=== PATIENT | male | born 1960 | race American Indian/Alaskan Native ===

== ENCOUNTER 2018-08-26 05:40 | Observation (INO) | payer MEDICAID ==
[2018-08-26] MEDS ORDERED: methylPREDNISolone Sodium Succinate 125 MG/2 ML SDV IVPUSH ONE (05:46)
[2018-08-26] MEDS ORDERED: Albuterol/Ipratropium 3.0-0.5 MG/3 ML Neb Soln NEB ONE (05:46)
[2018-08-26] MEDS ORDERED: Albuterol 0.083% 2.5 MG/3 ML Neb Soln NEB ONE (05:59)
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
[2018-08-26 06:29] LABS: ANION GAP 14.9; CHLORIDE,CL 98 mmol/L (101-111); SODIUM,NA 135 mmol/L (135-145)
[2018-08-26 06:41] LABS: BASE EXCESS ARTERIAL 0 mmol/L ((-2)-(+3)); O2 DELIVERY DEVICE ROOM AIR; O2 SATURATION ARTERIAL 95 % (95-100); PCO2 ARTERIAL 38 mmHg (35-45); PO2 ARTERIAL 71 mmHg (70-100)
[2018-08-26 06:43] LABS: ALLEN TEST PERFORMED
[2018-08-26] MEDS ORDERED: Aluminum Hydroxide/Magnesium Hydroxide/Simethicone Susp 30 ML Cup PO PRN (09:03)
[2018-08-26] MEDS ORDERED: Magnesium Hydroxide 400 MG/5 ML Susp 30 ML Cup PO PRN (09:03)
[2018-08-26] MEDS ORDERED: Acetaminophen 325 MG Tab PO PRN (09:03)
[2018-08-26] MEDS ORDERED: Calcium Carbonate 500 MG Tab.Chew PO PRN (09:03)
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
[2018-08-26] MEDS: Heparin Sodium 5,000 Units/ML Vial SUBCUT SCH ×2 (10:44→21:11)
[2018-08-26] MEDS: Nicotine 14 MG/24 Hr Patch TRDERM SCH (10:45)
[2018-08-26] MEDS: Azithromycin 500 MG in Sodium Chloride 0.9% 250 ML IV SCH (10:45)
[2018-08-26] MEDS: Albuterol/Ipratropium 3.0-0.5 MG/3 ML Neb Soln NEB SCH ×4 (11:44→22:26)
[2018-08-26] MEDS: Sodium Chloride 0.9% 10 ML Syringe FLUSH PRN ×2 (11:49→14:20)
[2018-08-26] MEDS: methylPREDNISolone Sodium Succinate 40 MG/1 ML SDV IVPUSH SCH ×2 (14:19→21:10)
[2018-08-26] MEDS ORDERED: Check Patch TRDERM SCH (21:00)
[2018-08-26] MEDS ORDERED: Codeine/Promethazine 10-6.25 MG/5 ML Syrup 5 ML UD Cup PO PRN (21:42)
[2018-08-27] MEDS: Albuterol/Ipratropium 3.0-0.5 MG/3 ML Neb Soln NEB SCH ×3 (03:27→10:54)
[2018-08-27] MEDS: methylPREDNISolone Sodium Succinate 40 MG/1 ML SDV IVPUSH SCH (06:35)
[2018-08-27] MEDS: Nicotine 14 MG/24 Hr Patch TRDERM SCH (08:23)
[2018-08-27] MEDS: Heparin Sodium 5,000 Units/ML Vial SUBCUT SCH (08:23)
[2018-08-27] MEDS: Azithromycin 500 MG in Sodium Chloride 0.9% 250 ML IV SCH (09:02)
--- NOTE | 2018-08-27 10:07 | PCM.DCSUM1 ---
Discharge Summary - Hospital Course Free Text/Narrative:: Patient is 50 y/o M with no significant past medical history accept for active tobacco use. He preseneted to the ER with SOB and was found to have acute hypoxic respiratroy failure due to possible COPD exacerbation. He was managed with IV solumedrol, nebs and supplemental oxygen with improvement. He is being discharge home in a stable condition. Patient will need formal lung function test following discharge. Diagnosis: Stroke: No - Discharge Data Discharge Date: 08/27/18 Discharge Disposition: Home, Self-Care 01 Condition: Good - Discharge Diagnosis/Problem(s) (1) Acute respiratory failure with hypoxia SNOMED Code(s): 92192721, 091963209 ICD Code: J96.01 - ACUTE RESPIRATORY FAILURE WITH HYPOXIA Status: Acute Priority: Medium Current Visit: Yes (2) Tobacco abuse SNOMED Code(s): 852663441 ICD Code: Z72.0 - TOBACCO USE Status: Acute Current Visit: Yes - Patient Instructions Diet: Heart Healthy Diet Activity: As Tolerated Driving: May Drive Today Showering/Bathing: May Shower Notify Provider of: Fever, Increased Pain, Swelling and Redness, Nausea and/or Vomiting - Discharge Plan *PRESCRIPTION DRUG MONITORING PROGRAM REVIEWED*: Not Applicable *COPY OF PRESCRIPTION DRUG MONITORING REPORT IN PATIENT DULCE: Not Applicable Prescriptions/Med Rec: Albuterol [Proventil HFA] 2 puff INH Q4H PRN #1 inhaler PRN Reason: wheezing Azithromycin [Zithromax] 250 mg PO DAILY #4 tab predniSONE [Prednisone] 40 mg PO DAILY #10 tablet Home Medications: Home Meds Albuterol [Proventil HFA] 2 puff INH Q4H PRN #1 inhaler 08/27/18 [Rx] Azithromycin [Zithromax] 250 mg PO DAILY #4 tab 08/27/18 [Rx] predniSONE [Prednisone] 40 mg PO DAILY #10 tablet 08/27/18 [Rx] Forms: ED Department Discharge Referrals: PCP,None [Primary Care Provider] - - Discharge Summary/Plan Comment DC Time >30 min.: Yes - General Info Admission Dx/Problem (Free Text: Admission Diagnosis/Problem Admission Diagnosis/Problem COPD with acute lower respiratory infection Functional Status: Reports: Pain Controlled - Review of Systems General: Reports: No Symptoms HEENT: Reports: No Symptoms Pulmonary: Reports: No Symptoms Cardiovascular: Reports: No Symptoms Gastrointestinal: Reports: No Symptoms Genitourinary: Reports: No Symptoms Musculoskeletal: Reports: No Symptoms Skin: Reports: No Symptoms Neurological: Reports: No Symptoms Psychiatric: Reports: No Symptoms - Patient Data Vitals - Most Recent: Last Vital Signs Temp 98.8 F 08/27/18 04:00 Pulse 98 08/27/18 04:00 Resp 20 08/27/18 04:00 BP 126/68 08/27/18 04:00 Pulse Ox 94 L 08/27/18 04:00 Weight - Most Recent: 177 lb I&O - Last 24 hours: Intake & Output 08/26/18 08/27/18 08/27/18 22:59 06:59 14:59 Intake Total 500 800 Balance 500 800 MARY Results - Last 24 hrs: Microbiology 08/26/18 06:51 Gram Stain - Final Sputum - Expectorated Sputum Culture - Preliminary NORMAL RESPIRATORY ILENE 1 DAY 08/26/18 06:00 Aerobic Blood Culture - Preliminary Blood - Venous NO GROWTH AFTER 1 DAY Anaerobic Blood Culture - Preliminary NO GROWTH AFTER 1 DAY Med Orders - Current: Current Medications Acetaminophen (Tylenol) 650 mg PO Q4H PRN PRN Reason: Pain (mild 1-3 )/fever Al Hydroxide/Mg Hydroxide (Mag-Al Plus) 30 ml PO Q4H PRN PRN Reason: Dyspepsia Albuterol/Ipratropium (Duoneb 3.0-0.5 Mg/3 Ml) 3 ml NEB Q4HRRT [facility] Last Admin: 08/27/18 06:33 Dose: 3 ml Calcium Carbonate/Glycine (Tums) 500 mg PO Q4H PRN PRN Reason: Dyspepsia Heparin Sodium (Porcine) (Heparin Sodium) 5,000 units SUBCUT Q12H [facility] Last Admin: 08/27/18 08:23 Dose: Not Given Azithromycin 500 mg/ Sodium (Chloride) 250 mls @ 250 mls/hr IV Q24H [facility] Last Admin: 08/27/18 09:02 Dose: 250 mls/hr Magnesium Hydroxide (Milk Of Magnesia) 30 ml PO BID PRN PRN Reason: Constipation Methylprednisolone Sodium Succinate (Solu-Medrol) 40 mg IVPUSH Q8H [facility] Last Admin: 08/27/18 06:35 Dose: 40 mg Miscellaneous Information (Check Patch) 1 ea TRDERM BEDTIME [facility] Last Admin: 08/26/18 21:11 Dose: Not Given Nicotine (Habitrol) 14 mg TRDERM DAILY [facility] Last Admin: 08/27/18 08:23 Dose: Not Given Promethazine HCl/Codeine (Phenergan With Codeine) 5 ml PO Q6HR PRN PRN Reason: Cough Last Admin: 08/26/18 22:27 Dose: 5 ml Sodium Chloride (Saline Flush) 10 ml FLUSH ASDIRECTED PRN PRN Reason: Keep Vein Open Last Admin: 08/26/18 14:20 Dose: 10 ml Discontinued Medications Albuterol (Proventil Neb Soln) 2.5 mg NEB ONETIME ONE Stop: 08/26/18 06:00 Last Admin: 08/26/18 06:07 Dose: 2.5 mg Albuterol/Ipratropium (Duoneb 3.0-0.5 Mg/3 Ml) 3 ml NEB ONETIME ONE Stop: 08/26/18 05:47 Last Admin: 08/26/18 05:50 Dose: 3 ml Methylprednisolone Sodium Succinate (Solu-Medrol) 125 mg IVPUSH ONETIME ONE Stop: 08/26/18 05:47 Last Admin: 08/26/18 05:52 Dose: 125 mg - Exam General: Reports: Alert, Oriented HEENT: Reports: Pupils Equal, Pupils Reactive, EOMI, Mucous Membr. Moist/[place] Neck: Reports: Supple Lungs: Reports: Clear to Auscultation, Normal Respiratory Effort Cardiovascular: Reports: Regular Rate, Regular Rhythm GI/Abdominal Exam: Normal Bowel Sounds, Soft, Non-Tender, No Organomegaly, No Distention, No Abnormal Bruit, No Mass, Pelvis Stable (Male) Exam: No Hernia, Normal Inspection, Normal Prostate, Circumcised Rectal (Males) Exam: Normal Exam, Normal Rectal Tone, Prostate Normal Back Exam: Reports: Normal Inspection, Full Range of Motion Extremities: Normal Inspection, Normal Range of Motion, Non-Tender, No Pedal Edema, Normal Capillary Refill Skin: Reports: Warm, Dry, Intact Wound/Incisions: Reports: Healing Well Neurological: Reports: No New Focal Deficit Psy/Mental Status: Reports: Alert, Normal Affect, Normal Mood
== END 2018-08-27 13:15 | disposition home or self-care (01) ==
LOC: EDBD → DL.ED 05:40 → UNDOADMOB 07:24 → INTOOBSV 07:24 → DL.MS 07:24
PROVIDERS: ADMIT Student in an Organized Health Care Education/Training Program; ATTEND Student in an Organized Health Care Education/Training Program
DX: J96.01 Acute respiratory failure with hypoxia (principal); J44.9 Chronic obstructive pulmonary disease, unspecified; F17.210 Nicotine dependence, cigarettes, uncomplicated
CPT/HCPCS: 36415; 36600; 71045; 80053; 82150; 82803; 83605; 83690; 83735; 83880; 84100; 84484; 85025; 85379; 87040; 87070; 87205; 93005; 94010; 94640; 96365; 96366; 96374; 96375; 96376; 99285; A9270-GY; G0378; J0456; J2920; J2930; J7050; J7613-GY; J7620-GY